=== PATIENT | male | born 1955 | race Caucasian/White ===

== ENCOUNTER → 2018-11-09 | Outpatient (CLI) | payer OTHER ==
[~2018-11-09] VITALS: Ht 177.8 cm; Wt 117.9 kg
[~2018-11-09] MED LIST: CENTRUM SILVER1 EAC2 PO; LISINOPRIL10 MG PO; MAGOX 400400 MG PO; METOPROLOL SUCC50 MG PO; PROBIOTIC1 EAC1 PO; TAMBOCOR 100 M100 M1 PO; XARELTO20 MG PO
--- NOTE | ~2018-11-09 | P ---
[facility] [place] [address] PROCEDURE REPORT Name: IVETTE GURROLA Room #: REG KATH Schmidt#: [id number] Admission: 11/09/18 Attend Phys: Pieter Sibley Discharge: Date of : 53 Report #: [id number] THIS REPORT FOR: //name// CC: Pieter Meyer DO DATE OF SERVICE: 11/09/2018 PROCEDURE PERFORMED: Colonoscopy with polypectomy. HISTORY OF PRESENT ILLNESS: The patient is a 63-year-old male who presents today for routine screening colonoscopy. Denies any symptoms. No family history of colon cancer. No previous history of colonoscopy. DESCRIPTION OF PROCEDURE: The risks and benefits of the procedure were explained to the patient, those risks including but not limited to bleeding, perforation and the risk of sedation. He understood these risks and gave informed consent. Sedation was given using propofol per anesthesia. Next, a digital rectal exam was initially performed, which was normal. Next, using a standard Olympus colonoscope, the scope was placed in the patient's anus and advanced under direct vision to the cecum. The overall prep was excellent. The cecum and ileocecal valve were normal in appearance. Ascending, transverse and descending colon were normal. Multiple diverticula were noted in the sigmoid colon, no evidence of inflammation. In the sigmoid colon, there were also 3 polyps, the two smaller polyps were 4 and 5 mm in size, both removed by cold forceps, the larger was 8 mm and removed by snare cautery. The rectal mucosa was normal. On retroflexion, no abnormalities were noted. The scope was then withdrawn and the procedure terminated. The patient tolerated the procedure well. IMPRESSION: 1. Sigmoid diverticulosis. 2. Three small colon polyps. 3. Otherwise, normal colonoscopy. RECOMMENDATIONS: 1. Await biopsy results. 2. If polyps are adenomatous, repeat in 5 years; if hyperplastic, repeat in 10 years. [facility] [address] [place] [address] PROCEDURE REPORT Name: IVETTE GURROLA Room #: REG [facility].#: [id number] Admission: 11/09/18 Attend Phys: Pieter Sibley Discharge: Date of : 53 Report #: [id number] Thank you for allowing me to participate in his care. By: [id number] Pieter Schumacher MD /eri
--- NOTE | 2018-11-10 16:06 | PATH ---
[facility] [address] [place] [address] PATHOLOGY RPT PROCEDURE Name: LUDA CARLIN Room #: REG KATH Garcia.#: [id number] Admission: 11/09/18 Date of : 53 Discharge: Report #: [id number] Path Case #: [id number] [facility] Accession Number: [id number] . 01 Material submitted: . POLYP AT SIGMOID COLON X3 . 01 Clinical history: . Pre-OP DX: Screening Post-OP DX: Colon polyps . 02 Diagnosis: Polyps x 2, sigmoid colon, endoscopic biopsy: - Tubular adenoma in two fragments; negative for high grade dysplasia. - Remaining fragments showing hyperplastic polyps; negative for dysplasia. . (IUV:mml; 11/10/2018) QLM/11/10/2018 . 02 Electronically signed: . Jessica Gonzalez MD, Pathologist NPI- [id number] . 01 Gross description: . Received in formalin labeled "Luda Carlin, polyp at sigmoid colon x3," are 6 segments of escamilla soft tissue measuring 1.5 x 0.9 x 0.5 cm in aggregate dimensions and ranging from 0.2 to 0.5 cm in maximum dimension. The specimen is submitted entirely in cassette A1. (TSD; 11/09/2018) TOB/TOB . 02 Pathologist provided ICD-10: D12.5 . 02 CPT . 741545 Specimen Comment: A courtesy copy of this report has been sent to Specimen Comment: [phone]. Specimen Comment: Report sent to Performed at: [address] [id number] MD Emeterio Mcdonald MD Phone: [phone] Performed at: [id number] [address] [address] PATHOLOGY RPT PROCEDURE Name: LUDA CARLIN Room #: REG [facility] Radha.#: [id number] Admission: 11/09/18 Date of : 53 Discharge: Report #: [id number] Path Case #: [id number] MD Jessica Gonzalez MD Phone: [phone]
== END | disposition home or self-care (01) ==
LOC: GI 08:48
DX: Z12.11 Encounter for screening for malignant neoplasm of colon (principal); K57.30 Diverticulosis of large intestine without perforation or abscess without bleeding; D12.5 Benign neoplasm of sigmoid colon; K63.5 Polyp of colon; I10 Essential (primary) hypertension; I48.91 Unspecified atrial fibrillation; G47.33 Obstructive sleep apnea (adult) (pediatric); Z98.890 Other specified postprocedural states; Z79.01 Long term (current) use of anticoagulants; Z79.899 Other long term (current) drug therapy